=== PATIENT | female | born 1955 | race Caucasian/White ===

== ENCOUNTER 2017-12-23 10:28 | Outpatient (CLI) | payer OTHER | END 2017-12-23 10:29 | disposition home or self-care (01) | LOC: BICMAMMO 10:28 | PROVIDERS: ATTEND Internal Medicine | DX: Z12.31 Encounter for screening mammogram for malignant neoplasm of breast (principal) | CPT/HCPCS: 77063; 77067 ==

== ENCOUNTER 2018-09-22 10:37 | Outpatient (CLI) | payer MEDICARE, OTHER | END 2018-09-22 10:38 | disposition home or self-care (01) | LOC: CTENTCT 10:37 | PROVIDERS: ATTEND Specialist | DX: J32.9 Chronic sinusitis, unspecified (principal) | CPT/HCPCS: 70486 ==

== ENCOUNTER 2018-12-24 10:33 | Outpatient (CLI) | payer MEDICARE, OTHER ==
--- NOTE | 2018-12-24 11:33 | MMO ---
Bilateral MAMMO Bilat Screen [facility]. CLINICAL HISTORY: Patient is 63 years old and is seen for screening. The patient has no family history of breast cancer. The patient has no personal history of cancer. The patient has a history of right Excisional Biopsy in 2008 - benign. VIEWS: The views performed were: bilateral craniocaudal with tomosynthesis and bilateral mediolateral oblique with tomosynthesis. FILMS COMPARED: The present examination has been compared to prior imaging studies performed at [facility] on 07/10/2014, and at [facility] on 09/14/2015, 12/17/2016 and 12/23/2017. MAMMOGRAM FINDINGS: There are scattered fibroglandular densities. Finding 1: There are stable benign appearing calcifications seen in both breasts. Finding 2: There is a stable biopsy clip seen in the right breast. There are no suspicious masses, suspicious calcifications, or new areas of architectural distortion. IMPRESSION: THERE IS NO MAMMOGRAPHIC EVIDENCE OF MALIGNANCY. A ROUTINE FOLLOW-UP MAMMOGRAM IN 1 YEAR IS RECOMMENDED. THE RESULTS OF THIS EXAM WERE SENT TO THE PATIENT. ACR BI-RADS Category 2 - Benign finding MAMMOGRAPHY NOTE: 1. A negative mammogram report should not delay a biopsy if a dominant of clinically suspicious mass is present. 2. Approximately 10% to 15% of breast cancers are not detected by mammography. 3. Adenosis and dense breasts may obscure an underlying neoplasm.
== END 2018-12-24 10:34 | disposition home or self-care (01) ==
LOC: BICMAMMO 10:33
PROVIDERS: ATTEND Internal Medicine
DX: Z12.31 Encounter for screening mammogram for malignant neoplasm of breast (principal)
CPT/HCPCS: 77063; 77067

== ENCOUNTER 2021-01-24 09:58 | Outpatient (CLI) | payer MEDICARE, OTHER | END 2021-01-24 09:59 | disposition home or self-care (01) | LOC: BICMAMMO 09:58 | PROVIDERS: ATTEND Internal Medicine | DX: Z13.820 Encounter for screening for osteoporosis (principal); Z78.0 Asymptomatic menopausal state; M85.89 Other specified disorders of bone density and structure, multiple sites | CPT/HCPCS: 77063; 77067; 77080 ==

== ENCOUNTER 2021-09-18 07:31 | Outpatient (CLI) | payer MEDICARE, OTHER ==
[2021-09-18] MEDS ORDERED: Iopamidol-370 76% 500 ML 1 ML ONE (09:32)
== END 2021-09-18 07:32 | disposition home or self-care (01) ==
LOC: BICCT 07:31
PROVIDERS: ATTEND Internal Medicine Gastroenterology
DX: R14.1 Gas pain (principal); I70.90 Unspecified atherosclerosis; K76.9 Liver disease, unspecified; Z90.710 Acquired absence of both cervix and uterus; Z98.890 Other specified postprocedural states
CPT/HCPCS: 74177; 82565; Q9967

== ENCOUNTER 2022-01-27 11:34 | Outpatient (CLI) | payer MEDICARE, OTHER | END 2022-01-27 11:35 | disposition home or self-care (01) | LOC: BICMAMMO 11:34 | PROVIDERS: ATTEND Internal Medicine | DX: Z12.31 Encounter for screening mammogram for malignant neoplasm of breast (principal); Z91.89 Other specified personal risk factors, not elsewhere classified | CPT/HCPCS: 77063; 77067 ==

== ENCOUNTER 2024-02-23 11:15 | Outpatient (CLI) | payer MEDICARE, OTHER | END 2024-02-23 11:16 | disposition home or self-care (01) | LOC: BICMAMMO 11:15 | PROVIDERS: ATTEND Internal Medicine | DX: Z12.31 Encounter for screening mammogram for malignant neoplasm of breast (principal); Z91.89 Other specified personal risk factors, not elsewhere classified | CPT/HCPCS: 77063; 77067 ==